=== PATIENT | male | born 2000 | race Caucasian/White ===

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

== ENCOUNTER 2022-05-31 21:08 | Emergency (ER) | payer BC ==
[2022-05-31 21:11] VITALS: BP 127/84; PULSE 73; RESP 18; TEMP 98.5
--- NOTE | 2022-05-31 21:46 | ED ---
Wound/Laceration HPI - General Chief Complaint: Wound/Laceration Stated Complaint: Laceration to right pinkie finger Time Seen by Provider: 05/31/22 21:30 Source: patient, RN notes reviewed Mode of arrival: ambulatory Limitations: no limitations - History of Present Illness Initial Comments: Follow-up with your regular physician as directed. Return to the ER immediately if any symptoms worsen, new symptoms arise, or any other problems develop. - Related Data Home Medications Medication Instructions Recorded Confirmed Loratadine [Claritin] 10 mg PO DAILY PRN 10/06/17 08/22/20 Previous Rx's Medication Instructions Recorded Azithromycin [Zithromax Z-pack (6 250 mg PO DIRECTED #6 tab 08/22/20 tabs)] Cephalexin [Keflex] 500 mg PO Q8H #15 cap 05/31/22 Allergies Allergy/AdvReac Type Severity Reaction Status Date / Time No Known Allergies Allergy Verified 05/31/22 21:11 Review of Systems ROS Statement: Those systems with pertinent positive or pertinent negative responses have been documented in the HPI. ROS Other: All systems not noted in ROS Statement are negative. Past Medical History Past Medical History: Asthma History of Any Multi-Drug Resistant Organisms: None Reported Past Surgical History: No Surgical Hx Reported Past Psychological History: No Psychological Hx Reported Smoking Status: Never smoker Past Alcohol Use History: None Reported Past Drug Use History: None Reported General Exam Limitations: no limitations General appearance: alert, in no apparent distress Head exam: Present: atraumatic, normocephalic, normal inspection Eye exam: Present: normal appearance, EOMI Neck exam: Present: normal inspection Respiratory exam: Present: normal lung sounds bilaterally. Absent: respiratory distress, wheezes, rales, rhonchi, stridor Cardiovascular Exam: Present: regular rate, normal rhythm, normal heart sounds. Absent: systolic murmur, diastolic murmur, rubs, gallop, clicks GI/Abdominal exam: Present: soft. Absent: guarding Extremities exam: Present: full ROM, normal capillary refill, other (Patient has a 2 Center laceration overlying the right fifth MCP joint on the dorsum of the hand. No evidence of foreign body. This does extend straight to the tendon. In fact, there appears to be a partial tendon injury. Remainder of the hand is atraumatic. ). Absent: normal inspection, tenderness Right Hand Wrist exam: Present: full ROM, laceration. Absent: tenderness, swelling, abrasion, ecchymosis, deformity, crepitus, dislocation, erythema, amputation, nail avulsion, subungual hematoma Neuro motor exam: Present: wrist extension intact, thumb opposition intact, thumb IP flexion intact, thumb adduction intact, fingers 2-5 abduction intact Neurosensory exam: Present: radial nerve intact, ulnar nerve intact, median nerve intact Vascular: Present: normal capillary refill. Absent: vascular compromise, Pallo, pulse deficit radial art, pulse deficit ulnar art Back exam: Present: normal inspection Neurological exam: Present: alert, oriented X3, CN II-XII intact Psychiatric exam: Present: normal affect, normal mood Skin exam: Present: warm, dry Course Vital Signs 05/31/22 21:09 Temperature 98.5 F Pulse Rate 73 Respiratory 18 Rate Blood Pressure 127/84 O2 Sat by Pulse 97 Oximetry Procedures - Laceration Laceration #1 Consent Obtained: verbal consent Indication: laceration Site: upper extremity ([id number]) Size (cm): 2 Description: linear Depth: simple, single layer Anesthetic Used: lidocaine 1% Anesthesia Technique: local infiltration, nerve block (Digital block) Amount (mls): 2 Pre-repair: wound explored, irrigated extensively Type of Sutures: nylon Size of Sutures: 5-0 Number of Sutures: 3 Technique: simple, interrupted Patient Tolerated Procedure: well, no complications Additional Comments: Appears to have a very limited extensor tendon injury. Full function. - Orthopedic Splinting/Casting Injury #1 Side: right Upper Extremity Injury Location: finger (Chapo taping fifth and fourth fingers) Medical Decision Making - Medical Decision Making Given the tiny extensor tendon laceration with good function. This is likely less than 10% of the tendon. We will have the patient follow-up with a hand surgeon. We'll cover with antibiotics. Splinting. Patient concurs with this treatment plan. Discussed wound care. Discussed signs and symptoms of infection. Patient was told to return to the ER for any signs or symptoms worsen. Told to return immediately if any other problems arise. All questions answered. Treatment plan discussed. Patient in agreement Every effort has been made to ensure accuracy of this dictation. However, due to the limitations of electronic medical records and dictation devices, errors in charting still occur. Supervising physicians Dr. Kitto Disposition Clinical Impression: Laceration of right hand, Injury of extensor tendon of right hand Narrative: Very limited extensor tendon injury, right hand, right fifth extensor tendon Disposition: HOME SELF-CARE Additional Instructions: Follow-up with your regular physician as directed. Return to the ER immediately if any symptoms worsen, new symptoms arise, or any other problems develop. Wash the wound daily with warm soap and water. Suture removal in 10 days or as directed by the orthopedic physician. Take antibiotics as directed. Call tomorrow morning to schedule follow-up appointment with the orthopedic physician. Prescriptions: Cephalexin [Keflex] 500 mg PO Q8H #15 cap Is patient prescribed a controlled substance at d/c from ED?: No Referrals: Rosa Mcneal DO [Doctor of Osteopathic Medicine] - 06/03/22 Time of Disposition: 22:26
--- NOTE | 2022-05-31 22:22 | XR ---
EXAMINATION TYPE: XR hand limited RT DATE OF EXAM: 05/31/2022 COMPARISON: NONE HISTORY: Laceration TECHNIQUE: 2 views FINDINGS: Metacarpals are intact. I see no fracture nor dislocation. No sizable foreign body. Joint s paces are normal. Finger is intact. IMPRESSION: Negative right hand exam.
[2022-05-31] MEDS ORDERED: BACITRACIN OINT 1 EACH PACKET TOPICAL ONE (22:24)
== END 2022-05-31 22:45 | disposition home or self-care (01) ==
LOC: EC 21:08
DX: S61.216A Laceration without foreign body of right little finger without damage to nail, initial encounter (principal); S66.306A Unspecified injury of extensor muscle, fascia and tendon of right little finger at wrist and hand level, initial encounter; J45.909 Unspecified asthma, uncomplicated; Z79.899 Other long term (current) drug therapy; Y28.0XXA Contact with sharp glass, undetermined intent, initial encounter
CPT/HCPCS: 12001; 99283

== ENCOUNTER 2022-12-16 08:16 | Inpatient (IN) | payer BC ==
--- NOTE | 2022-12-16 08:45 | ED ---
General Adult HPI - General Chief complaint: Abdominal Pain Stated complaint: Lower ABD Pain Time Seen by Provider: 12/16/22 08:30 Source: patient, RN notes reviewed, old records reviewed Mode of arrival: ambulatory Limitations: no limitations - History of Present Illness Initial comments: 22-year-old male presenting for evaluation of right lower quadrant pain, nausea. Symptoms began throughout the night. He developed some mid abdominal and right lower quadrant abdominal pain. No fever. Patient states he is otherwise healthy. He states he had a normal bowel movement this morning. No testicular pain. No hematuria. - Related Data Home Medications Medication Instructions Recorded Confirmed Loratadine [Claritin] 10 mg PO DAILY PRN 10/06/17 08/22/20 Previous Rx's Medication Instructions Recorded Azithromycin [Zithromax Z-pack (6 250 mg PO DIRECTED #6 tab 08/22/20 tabs)] Cephalexin [Keflex] 500 mg PO Q8H #15 cap 05/31/22 Allergies Allergy/AdvReac Type Severity Reaction Status Date / Time No Known Allergies Allergy Verified 12/16/22 08:28 Review of Systems ROS Statement: Those systems with pertinent positive or pertinent negative responses have been documented in the HPI. ROS Other: All systems not noted in ROS Statement are negative. Past Medical History Past Medical History: Asthma Additional Past Medical History / Comment(s): childhood asthma History of Any Multi-Drug Resistant Organisms: None Reported Past Surgical History: No Surgical Hx Reported Additional Past Surgical History / Comment(s): wisdom teeth removal Past Psychological History: No Psychological Hx Reported Smoking Status: Never smoker Past Alcohol Use History: None Reported Past Drug Use History: None Reported General Exam Limitations: no limitations General appearance: alert, in no apparent distress Head exam: Present: atraumatic, normocephalic Eye exam: Present: normal appearance, PERRL ENT exam: Present: normal exam Neck exam: Present: normal inspection Respiratory exam: Present: normal lung sounds bilaterally. Absent: respiratory distress Cardiovascular Exam: Present: regular rate, normal rhythm GI/Abdominal exam: Present: soft, tenderness (Right lower quadrant tenderness with minimal guarding). Absent: distended, rebound, rigid Extremities exam: Present: normal inspection Neurological exam: Present: alert, oriented X3, CN II-XII intact, normal gait. Absent: motor sensory deficit Psychiatric exam: Present: normal affect, normal mood Skin exam: Present: warm, dry, intact. Absent: cyanosis, diaphoretic Course Vital Signs 12/16/22 12/16/22 08:24 10:41 Temperature 98.1 F Pulse Rate 92 55 L Respiratory 18 18 Rate Blood Pressure 143/74 140/76 O2 Sat by Pulse 97 100 Oximetry - Reevaluation(s) Reevaluation #1: 12/16/22 08:45 Patient offered pain medication but declines at the time my initial evaluation. Medical Decision Making - Medical Decision Making Was pt. sent in by a medical professional or institution (, PA, ENGINEERING PROGRAM ANALYST, urgent care, hospital, or fci...) When possible be specific @ -No Did you speak to anyone other than the patient for history (EMS, parent, family, police, friend...)? What history was obtained from this source @ -Patient's father Did you review nursing and triage notes (agree or disagree)? Why? @ -I reviewed and agree with nursing and triage notes Were old charts reviewed (outside hosp., previous admission, EMS record, old EKG, old radiological studies, urgent care reports/EKG's, fci records)? Report findings @ -Reviewed old computed tomography scan showing calcified appendicolith Differential Diagnosis (chest pain, altered mental status, abdominal pain women, abdominal pain men, vaginal bleeding, weakness, fever, dyspnea, syncope, headache, dizziness, GI bleed, back pain, seizure, CVA, palpatations, mental health, musculoskeletal)? @ -Differential Abdominal Pain Men: Appendicitis, cholecystitis, diverticulosis, ischemic bowel, pancreatitis, hepatitis, UTI, gastroenteritis, AAA, incarcerated hernia, bowel obstruction, constipation, inflammatory bowel, hepatitis, peptic ulcer disease, splenic infarction, perforated viscus, testicular torsion, this is not meant to be an all-inclusive list EKG interpreted by me (3pts min.). @ -None X-rays interpreted by me (1pt min.). @ -None done CT interpreted by me (1pt min.). @ -CT reviewed and interpreted by myself, agree with the radiologist findings, concern for acute appendicitis. U/S interpreted by me (1pt. min.). @ -None done What testing was considered but not performed or refused? (CT, X-rays, U/S, labs)? Why? @ -None What meds were considered but not given or refused? Why? @ -Consider pain medication, IV pain meds however patient declined initially Did you discuss the management of the patient with other professionals (professionals i.e. , PA, ENGINEERING PROGRAM ANALYST, lab, RT, psych nurse, social studies department chair, photographic press screwmaker, teacher, armoured corps officer, case technician)? Give summary @ -Discuss case with general surgery on-call, Dr. Wang Was smoking cessation discussed for >3mins.? @ -No Was critical care preformed (if so, how long)? @ -No Were there social determinants of health that impacted care today? How? (Homelessness, low income, unemployed, alcoholism, drug addiction, transportation, low edu. Level, literacy, decrease access to med. care, fdc, rehab)? @ -No Was there de-escalation of care discussed even if they declined (Discuss DNR or withdrawal of care, Hospice)? DNR status @ -No What co-morbidities impacted this encounter? (DM, HTN, Smoking, COPD, CAD, Cancer, CVA, ARF, Chemo, Hep., AIDS, mental health diagnosis, sleep apnea, morbid obesity)? @ -None Was patient admitted / discharged? Hospital course, mention meds given and r oute, prescriptions, significant lab abnormalities, going to OR and other pertinent info. @ -4-year-old male presenting with right lower quadrant pain, concern for appendicitis. Workup was initiated, telemetry testing, and CT imaging. White blood cell count is elevated at 14, history and exam is consistent with appendicitis. CT imaging does show a dilated appendix and appendicolith which is consistent with acute appendicitis. Patient will be admitted on IV antibiotics for surgical management. Undiagnosed new problem with uncertain prognosis? @ -No Drug Therapy requiring intensive monitoring for toxicity (Heparin, Nitro, Insulin, Cardizem)? @ -No Were any procedures done? @ -No Diagnosis/symptom? @ -Acute appendicitis Acute, or Chronic, or Acute on Chronic? @ -Acute Uncomplicated (without systemic symptoms) or Complicated (systemic symptoms)? @ -Complicated Side effects of treatment? @ -No Exacerbation, Progression, or Severe Exacerbation? @ -No Poses a threat to life or bodily function? How? (Chest pain, [place], [place], pneumonia, PE, COPD, DKA, ARF, appy, cholecystitis, CVA, Diverticulitis, Homicidal, Suicidal, threat to staff... and all critical care pts) @ -Appendicitis leading to sepsis, leading to end organ dysfunction and possible . - Lab Data Result diagrams: 12/16/22 08:52 12/16/22 08:52 Lab Results 12/16/22 12/16/22 12/16/22 Range/Units 08:52 08:52 08:52 WBC 14.4 H (4.0-11.0) k/uL RBC 5.48 (4.30-5.90) m/uL Hgb 16.5 (13.0-17.5) gm/dL Hct 46.5 (39.0-53.0) % MCV 84.9 (80.0-100.0) fL MCH 30.1 (25.0-35.0) pg MCHC 35.5 (31.0-37.0) g/dL RDW 12.1 (11.5-15.5) % Plt Count 236 (150-450) k/uL MPV 7.0 Neutrophils % 83 % Lymphocytes % 9 % Monocytes % 6 % Eosinophils % 1 % Basophils % 0 % Neutrophils # 11.9 H (1.3-7.7) k/uL Lymphocytes # 1.3 (1.0-4.8) k/uL Monocytes # 0.9 (0-1.0) k/uL Eosinophils # 0.1 (0-0.7) k/uL Basophils # 0.0 (0-0.2) k/uL PT 11.8 (9.0-12.0) sec INR 1.1 (<1.2) APTT 26.5 (22.0-30.0) sec Sodium 139 (137-145) mmol/L Potassium 4.8 (3.5-5.1) mmol/L Chloride 102 (98-107) mmol/L Carbon Dioxide 28 (22-30) mmol/L Anion Gap 9 mmol/L BUN 16 (9-20) mg/dL Creatinine 0.87 (0.66-1.25) mg/dL Est GFR (CKD-EPI)AfAm >90 (>60 ml/min/1.73 sqM) Est GFR (CKD-EPI)NonAf >90 (>60 ml/min/1.73 sqM) Glucose 97 (74-99) mg/dL Plasma Lactic Acid Jake (0.7-2.0) mmol/L Calcium 9.6 (8.4-10.2) mg/dL Total Bilirubin 1.4 H (0.2-1.3) mg/dL AST 27 (17-59) U/L ALT 23 (4-49) U/L Alkaline Phosphatase 81 (38-126) U/L Total Protein 7.7 (6.3-8.2) g/dL Albumin 4.7 (3.5-5.0) g/dL Lipase 35 (23-300) U/L 12/16/22 Range/Units 08:52 WBC (4.0-11.0) k/uL RBC (4.30-5.90) m/uL Hgb (13.0-17.5) gm/dL Hct (39.0-53.0) % MCV (80.0-100.0) fL MCH (25.0-35.0) pg MCHC (31.0-37.0) g/dL RDW (11.5-15.5) % Plt Count (150-450) k/uL MPV Neutrophils % % Lymphocytes % % Monocytes % % Eosinophils % % Basophils % % Neutrophils # (1.3-7.7) k/uL Lymphocytes # (1.0-4.8) k/uL Monocytes # (0-1.0) k/uL Eosinophils # (0-0.7) k/uL Basophils # (0-0.2) k/uL PT (9.0-12.0) sec INR (<1.2) APTT (22.0-30.0) sec Sodium (137-145) mmol/L Potassium (3.5-5.1) mmol/L Chloride (98-107) mmol/L Carbon Dioxide (22-30) mmol/L Anion Gap mmol/L BUN (9-20) mg/dL Creatinine (0.66-1.25) mg/dL Est GFR (CKD-EPI)AfAm (>60 ml/min/1.73 sqM) Est GFR (CKD-EPI)NonAf (>60 ml/min/1.73 sqM) Glucose (74-99) mg/dL Plasma Lactic Acid Jake 1.5 (0.7-2.0) mmol/L Calcium (8.4-10.2) mg/dL Total Bilirubin (0.2-1.3) mg/dL AST (17-59) U/L ALT (4-49) U/L Alkaline Phosphatase (38-126) U/L Total Protein (6.3-8.2) g/dL Albumin (3.5-5.0) g/dL Lipase (23-300) U/L Disposition Clinical Impression: Acute appendicitis Disposition: ADMITTED IP TO THIS HOSP Condition: Stable Is patient prescribed a controlled substance at d/c from ED?: No Referrals: None,Stated [Primary Care Provider] - 1-2 days Time of Disposition: 10:30
[2022-12-16 09:13] LABS: ALT 23 U/L (4-49); AST 27 U/L (17-59); African American GFR (CKD) >90 (>60 ml/min/1.73 sqM); Albumin 4.7 g/dL (3.5-5.0); Alkaline Phosphatase 81 U/L (38-126); Anion Gap 9 mmol/L; Blood Urea Nitrogen 16 mg/dL (9-20); Calcium 9.6 mg/dL (8.4-10.2); Carbon Dioxide 28 mmol/L (22-30); Chloride 102 mmol/L (98-107); Glucose 97 mg/dL (74-99); INR 1.1 (<1.2); Lipase 35 U/L (23-300); Non-African American GFR(CKD) >90 (>60 ml/min/1.73 sqM); Partial Thromboplastin Time 26.5 sec (22.0-30.0); Potassium 4.8 mmol/L (3.5-5.1); Prothrombin Time 11.8 sec (9.0-12.0); Sodium 139 mmol/L (137-145); Total Bilirubin 1.4 mg/dL (0.2-1.3); Total Protein 7.7 g/dL (6.3-8.2)
[2022-12-16 09:16] LABS: Basophils % (A) 0 %; Eosinophils # (A) 0.1 k/uL (0-0.7); Eosinophils % (A) 1 %; HCT 46.5 % (39.0-53.0); HGB 16.5 gm/dL (13.0-17.5); Lymphocytes # (A) 1.3 k/uL (1.0-4.8); Lymphocytes % (A) 9 %; MCH 30.1 pg (25.0-35.0); MCHC 35.5 g/dL (31.0-37.0); MCV 84.9 fL (80.0-100.0); Monocytes # (A) 0.9 k/uL (0-1.0); Monocytes % (A) 6 %; Neutrophils # (A) 11.9 k/uL (1.3-7.7); Neutrophils % (A) 83 %; Platelet Count 236 k/uL (150-450); RBC 5.48 m/uL (4.30-5.90); RDW 12.1 % (11.5-15.5); WBC 14.4 k/uL (4.0-11.0)
--- NOTE | 2022-12-16 10:27 | CT ---
EXAMINATION TYPE: CT abdomen pelvis w con DATE OF EXAM: 12/16/2022 COMPARISON: CT abdomen and pelvis August 22, 2020 HISTORY: Abdominal pain/RLQ CT DLP: 755.1 mGycm, Automated Exposure Control for Dose Reduction was Utilized. CONTRAST: CT scan of the abdomen and pelvis is performed without oral and with IV Contrast, patient injected wi th 100 ml mL of Isovue 300. FINDINGS: LUNG BASES: No significant abnormality is appreciated. LIVER/GB: No significant abnormality is appreciated. PANCREAS: No significant abnormality is seen. SPLEEN: No significant abnormality is seen. ADRENALS: No significant abnormality is seen. KIDNEYS: No significant abnormality is seen. BOWEL: Suboptimal evaluation without enteric contrast. No suspicious small or large bowel dilatation. Persistent calcification in the right lower quadrant axial image 59 and was present on prior CT appe ars to be regions of near the level of the cecum. Terminal ileum likely within normal limits coronal image 33. Calcification is felt not within the cecum but below it. It may be in the mid aspect of the appendix with dilated appendix inferior to this measuring up to 13 mm in diameter versus fluid-fille d distal small bowel loop with nondilated proximal portion near the cecum. There is minimal haziness of the adjacent fat. No free air. No well-formed fluid collection or abscess. PROSTATE/SEMINAL VESICLES: No gross abnormality seen. LYMPH NODES: Persistent prominent lymph nodes in the right lower quadrant mesentery. OSSEOUS STRUCTURES: No significant abnormality is seen. OTHER: Small amount of free fluid in the pelvis axial image 67 on current study. IMPRESSION: CT findings on current study are suspicious for mid to distal appendicitis due to obstruc tive appendicolith on the current study. Calcification possible appendicolith was visualized on prior exam however. Difficult to discern appendix from adjacent small bowel loops in patient with little i ntra-abdominal fat and lack of enteric contrast. Small amount of free fluid in the pelvis is noted an d new from prior study. Surgical evaluation is advised.
[2022-12-16] MEDS ORDERED: PIPERACILLIN-TAZOBACTAM 3.375 GM in SODIUM CHLORIDE 0.9% 100 ML IVPB STA (10:38)
[2022-12-16] MEDS ORDERED: NALOXONE 0.4 MG/ML 1 ML VIAL IV PRN (10:44)
[2022-12-16] MEDS ORDERED: ACETAMINOPHEN TAB 325 MG TAB PO PRN (10:44)
[2022-12-16] MEDS: SODIUM CHLORIDE 0.9% 1,000 ML IV SCH ×2 (12:02→21:35)
[2022-12-16] MEDS: HYDROmorphone 0.5 MG/0.5 ML SYRINGE IVP PRN ×4 (12:06→21:34)
[2022-12-16] MEDS: PIPERACILLIN-TAZOBACTAM 3.375 GM in SODIUM CHLORIDE 0.9% 100 ML IVPB SCH ×2 (12:51→21:09)
--- NOTE | 2022-12-16 22:48 | P.GSHP ---
History of Present Illness H&P Date: 12/16/22 CHIEF COMPLAINT: Right lower quadrant abdominal pain with appendicitis less than 1 day. HISTORY OF PRESENT ILLNESS: The patient is a previously healthy 22-year-old male who presents with less than 1 day history of periumbilical with right lower quadrant abdominal pain that is crampy dull ache in nature. No reports of prior abdominal pain. He states the intensity of the pain is moderate but has improved today. His presented with CT abdomen and pelvis consistent with dilated appendix suspicious for appendicitis hence general surgery admission. He reports in appetite. No nausea and vo miting. His father's bedside. PAST MEDICAL HISTORY: See list and reviewed PAST SURGICAL HISTORY: See list and reviewed CURRENT MEDICATIONS: See list and reviewed ALLERGIES: See list and reviewed SOCIAL HISTORY: See list and reviewed FAMILY HISTORY: See list and reviewed REVIEW OF ORGAN SYSTEMS: CONSTITUTIONAL: Present fever, no chills. Denies recent weight loss. HEENT: Denies any trouble with vision, hearing or nosebleeds. No difficulty swallowing. LYMPHATIC: The patient denies any lumps and bumps around the neck. ENDOCRINE: Denies any thyroid disorders. Denies any blood sugar glucose intolerance. RESPIRATORY: Denies shortness of breath including chronic cough. CARDIOVASCULAR: Denies history of chest pain with exertion. GASTROINTESTINAL: Denies regurgitation of bile at night as well as intermittent nausea. No blood in stools. GENITOURINARY: Denies any blood in urine or increased urinary frequency. MUSCULOSKELETAL: Denies current joint arthritis. NEUROLOGIC: Denies any numbness or tingling along the distal extremities. No seizure disorders or headaches. PSYCHIATRIC: Denies any depression or suicidal ideation. HEMATOLOGIC: Denies any abnormal bleeding or bruising. PHYSICAL EXAMINATION: VITALS: Reviewed. GENERAL: Well-developed and in no acute distress. Pleasant. HEENT: No sclera icterus. Extraocular movements grossly intact. Moist buccal mucosa. Head is atraumatic, normocephalic. Hears conversational speech. No nasal drainage. NECK: Supple without lymphadenopathy. No JV distention. CHEST: Non-labored respirations and equal bilateral excursions. CARDIOVASCULAR: Regular rate and rhythm. Palpable 2+ radial pulses. ABDOMEN: Soft, tender at the right lower quadrant without guarding. MUSCULOSKELETAL: No clubbing, cyanosis or edema. NEUROLOGIC: No focal or lateralizing signs. PSYCH: Appropriate affect. Alert and oriented to person, place and time. SKIN: Well perfused. Good skin turgor. LABS: Reviewed. White blood cell count elevated over 14,000. STUDIES: CT of the abdomen and pelvis independently reviewed with appendicolith right lower quadrant. This is my independent interpretation. ASSESSMENT: 1. Right lower quadrant pain. 2. Appendicolith with appendicitis 3. Leukocytosis. PLAN: 1. I have discussed benefits and risks of robotic appendectomy. 2. Bilateral SCDs. 3. Antibiotics intravenous to address leukocytosis Thank you very much for allowing me to participate in the care of your estuardo ent. Past Medical History Past Medical History: Asthma Additional Past Medical History / Comment(s): childhood asthma History of Any Multi-Drug Resistant Organisms: None Reported Past Surgical History: No Surgical Hx Reported Additional Past Surgical History / Comment(s): wisdom teeth removal Past Psychological History: No Psychological Hx Reported Smoking Status: Never smoker Past Alcohol Use History: None Reported Past Drug Use History: None Reported Medications and Allergies Home Medications Medication Instructions Recorded Confirmed Type No Known Home Medications 12/16/22 12/16/22 History Allergies Allergy/AdvReac Type Severity Reaction Status Date / Time No Known Allergies Allergy Verified 12/16/22 11:06 Surgical - Exam Vital Signs Temp Pulse Resp BP Pulse Ox 98.1 F 92 18 143/74 97 12/16/22 08:24 12/16/22 08:24 12/16/22 08:24 12/16/22 08:24 12/16/22 08:24 Results - Labs 12/16/22 08:52 12/16/22 08:52 Abnormal Lab Results - Last 24 Hours (Table) 12/16/22 12/16/22 Range/Units 08:52 08:52 WBC 14.4 H (4.0-11.0) k/uL Neutrophils # 11.9 H (1.3-7.7) k/uL Total Bilirubin 1.4 H (0.2-1.3) mg/dL Diabetes panel 12/16/22 Range/Units 08:52 Sodium 139 (137-145) mmol/L Potassium 4.8 (3.5-5.1) mmol/L Chloride 102 (98-107) mmol/L Carbon Dioxide 28 (22-30) mmol/L BUN 16 (9-20) mg/dL Creatinine 0.87 (0.66-1.25) mg/dL Glucose 97 (74-99) mg/dL Calcium 9.6 (8.4-10.2) mg/dL AST 27 (17-59) U/L ALT 23 (4-49) U/L Alkaline Phosphatase 81 (38-126) U/L Total Protein 7.7 (6.3-8.2) g/dL Albumin 4.7 (3.5-5.0) g/dL Calcium panel 12/16/22 Range/Units 08:52 Calcium 9.6 (8.4-10.2) mg/dL Albumin 4.7 (3.5-5.0) g/dL Pituitary panel 12/16/22 Range/Units 08:52 Sodium 139 (137-145) mmol/L Potassium 4.8 (3.5-5.1) mmol/L Chloride 102 (98-107) mmol/L Carbon Dioxide 28 (22-30) mmol/L BUN 16 (9-20) mg/dL Creatinine 0.87 (0.66-1.25) mg/dL Glucose 97 (74-99) mg/dL Calcium 9.6 (8.4-10.2) mg/dL Adrenal panel 12/16/22 Range/Units 08:52 Sodium 139 (137-145) mmol/L Potassium 4.8 (3.5-5.1) mmol/L Chloride 102 (98-107) mmol/L Carbon Dioxide 28 (22-30) mmol/L BUN 16 (9-20) mg/dL Creatinine 0.87 (0.66-1.25) mg/dL Glucose 97 (74-99) mg/dL Calcium 9.6 (8.4-10.2) mg/dL Total Bilirubin 1.4 H (0.2-1.3) mg/dL AST 27 (17-59) U/L ALT 23 (4-49) U/L Alkaline Phosphatase 81 (38-126) U/L Total Protein 7.7 (6.3-8.2) g/dL Albumin 4.7 (3.5-5.0) g/dL
[2022-12-17] MEDS: ACETAMINOPHEN IV (For NPO) 1,000 MG in EMPTY BAG 1 BAG IVPB SCH ×4 (00:35→18:45)
[2022-12-17] MEDS: HYDROmorphone 0.5 MG/0.5 ML SYRINGE IVP PRN ×2 (00:37→03:54)
[2022-12-17] MEDS: HYDROmorphone 1 MG/ML 1 ML SYRINGE IVP PRN ×3 (04:53→12:27)
[2022-12-17] MEDS: PIPERACILLIN-TAZOBACTAM 3.375 GM in SODIUM CHLORIDE 0.9% 100 ML IVPB SCH ×3 (05:23→21:01)
[2022-12-17] MEDS: SODIUM CHLORIDE 0.9% 1,000 ML IV SCH ×3 (05:31→17:31)
[2022-12-17] MEDS: ONDANSETRON 4 MG/2 ML VIAL IVP PRN ×2 (07:31→13:48)
[2022-12-17 10:26] LABS: HCT 46.2 % (39.6-50.0); HGB 15.3 g/dL (13.0-17.0); MCHC 33.1 g/dL (32.0-37.0); MCV 87.7 fL (80.0-97.0); Mean Platelet Volume 9.9 fL (9.5-12.2); NRBC Per 100 WBC 0 /100 WBCS (0.0-0.0); Platelet Count 237 X 10*3/uL (140-440); RBC 5.27 X 10*6/uL (4.40-5.60); RDW 11.9 % (11.5-14.5); WBC 20.75 X 10*3/uL (4.50-10.00)
[2022-12-17 11:11] LABS: Basophils # (A) 0.04 X 10*3/uL (0.00-0.10); Basophils % (A) 0.2 %; Eosinophils # (A) 0.03 X 10*3/uL (0.04-0.35); Eosinophils % (A) 0.1 %; Immature Grans, Automated 0.6 %; Lymphocytes # (A) 2.14 X 10*3/uL (0.90-5.00); Lymphocytes % (A) 10.3 %; Monocytes # (A) 2.13 X 10*3/uL (0.20-1.00); Monocytes % (A) 10.3 %; Neutrophils # (A) 16.28 X 10*3/uL (1.80-7.70); Neutrophils % (A) 78.5 %
[2022-12-17] MEDS ORDERED: IV FLUID CONTINUATION 1,000 ML IV ONE (13:45)
[2022-12-17] MEDS ORDERED: HEPARIN SODIUM,PORCINE/PF 5,000 UNIT/0.5 ML SYRINGE SQ ONE (14:06)
[2022-12-17] MEDS ORDERED: HEPARIN SODIUM,PORCINE 5,000 UNIT/ML 1 ML VIAL SQ ONE (14:09)
[2022-12-17] MEDS ORDERED: KETAMINE 10 MG/ML 20 ML VIAL ONE (14:37)
[2022-12-17] MEDS ORDERED: fentaNYL (PF) 50 MCG/ML 2 ML AMP ONE (14:37)
[2022-12-17] MEDS ORDERED: SUCCINYLCHOLINE CHLORIDE 200 MG/10 ML VIAL IV ONE (14:37)
[2022-12-17] MEDS ORDERED: HYDROmorphone (PF) 1 MG/ML ONE (14:37)
[2022-12-17] MEDS ORDERED: PROPOFOL 10 MG/ML 20 ML VIAL IV ONE (14:37)
[2022-12-17] MEDS ORDERED: LIDOCAINE 2% INJ 20 MG/ML (2 ML VIAL) ONE (14:37)
[2022-12-17] MEDS ORDERED: ROCURONIUM 10 MG/ML (5 ML VIAL) IV ONE (14:37)
[2022-12-17] MEDS ORDERED: MIDAZOLAM 2 MG/2 ML VIAL ONE (14:37)
[2022-12-17] MEDS ORDERED: GLYCOPYRROLATE 0.2 MG/ML 2 ML VIAL ONE (14:37)
[2022-12-17] MEDS ORDERED: KETOROLAC 30 MG/ML 1 ML VIAL ONE (14:37)
[2022-12-17] MEDS ORDERED: NEOSTIGMINE 1 MG/ML 10 ML VIAL ONE (14:37)
[2022-12-17] MEDS ORDERED: BUPIVACAIN-EPI 0.25%-1:200,000 30 ML VIAL SQ ONE ×2 (14:59→15:08)
[2022-12-17] MEDS ORDERED: LACTATED RINGERS 1,000 ML IV ONE ×2 (15:20→15:59)
--- NOTE | 2022-12-17 16:57 | P.OP ---
Date of Procedure: 12/17/22 Description of Procedure: SURGEON: CARLOZ MADDOX MD Preoperative Diagnosis: 1. Acute appendicitis 2. Sepsis 3. Ascites Postoperative Diagnosis: 1. Gangrenous ruptured appendicitis with appendiceal abscess with peritoneal adhesions 2. Sepsis 3. Ascites, turbid 4. Right inguinal hernia Procedure(s) Performed: 1. Robotic-assisted daVinci Xi laparoscopic lysis of adhesions, over 30 minutes 2. Robotic-assisted daVinci Xi laparoscopic appendectomy with drainage of periappendiceal abscess 3. Placement of DONNY drain #19 right lower quadrant/pelvis 4. Peritoneal lavage 3000 mL normal saline Anesthesia: GETA, local Estimated Blood Loss (ml): 5 Pathology: other (appendix, aerobic and anerobic culture of peritoneal fluid from peritonitis) Condition: stable Disposition: floor Operative Findings: 1. Localized abscess over 50-mL drained right lower quadrant 2. Gangrenous ruptured purulent appendicitis including mid-body appendix 3. Abdomen irrigated with 3000-mL normal saline 4. DONNY drain placed at pelvis pocket drained 5. Staple line hemostatic 6. Right indirect inguinal hernia, 5-mm INDICATIONS: The patient is a 22-year-old male who presents with acute appendicitis including fevers consistent with sepsis. Surgical intervention was described in detail. Patient requested robotic-assisted technique. Benefits and risks, including infection, open surgery, and possibility for additional surgery was discussed at length. Informed consent was obtained. All questions of the patient and family were answered. DESCRIPTION: The patient was transferred to the operating room and placed in supine position. The patient had previously voided. The abdomen was then prepped and draped in standard sterile fashion as Ioban was placed along the abdomen to minimize any contamination of skin floor. After a timeout protocol was performed, attention was then brought to the left upper quadrant whereby a 0 degree 5 mm laparoscopic trocar entry was performed. The abdominal cavity was entered and insufflated to 15 mmHg pressure, which was tolerated well. Diagnostic laparoscopy demonstrated no injury to bowel, viscera or mesentery. Adhesions were confirmed of the right lower quadrant of omentum, small bowel to the abdominal wall. Localized abscess was found. Next a robotic 12-mm trocar was placed along the left upper quadrant after exchanging the 5 mm trocar. A 8 mm port was placed along the left lower quadrant and another 8-mm port left lateral abdominal wall. Ports were placed 10 cm apart from each other including 15-20 cm away from the target anatomy of the right pelvis. The patient was then placed in Trendelenburg position, at least 14 and right side up at least 7. The robotic da Jeremy XI system was primed and docked from the left side of the patient. Using atraumatic graspers and vessel sealer, the robotic system was docked and primed as described. Instruments were interchanged by the legal document assistant including graspers, robotic stapler and vessel sealer. Next, attention was brought to identify the cecum. A systematic view within the abdominal cavity was started with the small bowel which was remarkable for diffuse fibrinous exudate throughout the pelvis. The base of the cecum was with inflammation and ischemia. The appendix was ruptured and mid body of appendix with moderate dissection performed. The abscess of 20- mL was aspirated from the abdomen. Extensive lysis of adhesions over 30 minutes was used to dissect the appendix from surrounding tissues including along the base of the cecum. Turbid peritoneal fluid along the pelvis with abscess was identified with 50 mL, drained. Additionally, a right indirect inguinal hernia, 5 mm was identified. A 45 mm blue robotic staple load was fired along the base of the appendix. The staple line was hemostatic and viable. Hemostasis was checked prior to undocking the robot. The abdomen was irrigated with 3000 mL normal saline to the aspirant was clear. Cultures were obtained of the peritoneal fluid. The robot was undocked. I re-scrubbed into the case. A round #19 drain was placed via the left lower quadrant port and positioned at the pelvis. Two drain stitch 2-0 nylon were placed with the bulb attached separately. The specimen was removed from the abdominal cavity with an Endo Catch bag through the 12 mm trocar at the left upper quadrant. All instruments and pneumoperitoneum were evacuated from the abdominal cavity. Local anesthetic was infiltrated to all wounds for postop analgesia. All incisions were also cleansed with diluted hydrogen peroxide. An Optifoam surgical dressing was placed over all port sites including drain site as she has elevated risk for infection. The patient had tolerated the procedure well. The patient was extubated successfully. The patient was transferred to the postanesthesia care unit in stable condition. Intraoperative findings were discussed with the patient's father in person and mother over the telephone.
[2022-12-17] MEDS: PANTOPRAZOLE 40 MG/10 ML VIAL IVP SCH (17:34)
[2022-12-17] MEDS: HEPARIN SODIUM,PORCINE/PF 5,000 UNIT/0.5 ML SYRINGE SQ SCH (21:25)
[2022-12-17] MEDS: KETOROLAC 15 MG/ML 1 ML VIAL IVP SCH ×2 (21:25→23:10)
[2022-12-18] MEDS ORDERED: ACETAMINOPHEN IV (For NPO) 1,000 MG in EMPTY BAG 1 BAG IVPB ONE
[2022-12-18] MEDS: HYDROmorphone 0.5 MG/0.5 ML SYRINGE IVP PRN (01:14)
[2022-12-18] MEDS: ONDANSETRON 4 MG/2 ML VIAL IVP PRN (01:14)
--- NOTE | 2022-12-18 01:31 | P.CONS ---
History of Present Illness - Reason for Consult Consult date: 12/17/22 Medical management - Chief Complaint Status post appendectomy - History of Present Illness Patient is a 22-year-old male with a known history of childhood asthma currently not on any medications presents to ER with complaints of right lower quadrant abdominal pain started on Tuesday night night and came to ER on morning, 12/16/2022.. Patient was complaining of mid abdominal and also right lower quadrant abdominal pain. Crampy and dull aching pain. Patient was nauseous and no episodes of vomiting. He came to ER due to worsening abdominal pain. CT of the abdomen pelvis showed CT findings on current study are suspicious for mid to distal appendicitis due to obstructive appendicolith on the current study. Calcification possible appendicolith was visualized on prior exam however. Laboratory data showed WBC 14.4 hemoglobin 16.5 and platelets 236 and lymphocytes 11.9 INR 1.1 and sodium 139 potassium 4.8 chloride 102 bicarb is 28 BUN 16 creatinine 0.87 and total bilirubin of 1.4 liver enzymes are not elevated lipase level is 35. Patient was taken to the OR and is currently status post robotic assisted laparoscopic cholecystectomy and found to have ruptured appendicitis with periappendicular abscess drainage.. Currently patient is in the postop recovery area. Review of Systems ROS unobtainable: due to mental status Past Medical History Past Medical History: Asthma Additional Past Medical History / Comment(s): childhood asthma History of Any Multi-Drug Resistant Organisms: None Reported Past Surgical History: No Surgical Hx Reported Additional Past Surgical History / Comment(s): wisdom teeth removal Past Psychological History: No Psychological Hx Reported Smoking Status: Never smoker Past Alcohol Use History: None Reported Past Drug Use History: None Reported Medications and Allergies Home Medications Medication Instructions Recorded Confirmed Type No Known Home Medications 12/16/22 12/16/22 History Allergies Allergy/AdvReac Type Severity Reaction Status Date / Time No Known Allergies Allergy Verified 12/16/22 11:06 Physical Exam Vitals: Vital Signs Temp Pulse Pulse Resp BP BP Pulse Ox 12/17/22 16:34 87 15 121/58 98 12/17/22 16:19 98.8 F 93 12 122/58 97 12/17/22 13:40 100 F H 105 H 16 124/58 94 L 12/17/22 07:00 99.1 F 98 18 97/57 97 12/17/22 04:57 100.2 F H 82 16 110/62 97 12/17/22 00:45 100.1 F H 76 16 110/64 99 12/16/22 20:00 16 12/16/22 19:11 98.7 F 66 16 116/61 98 Intake and Output 12/17/22 12/17/22 12/17/22 06:59 14:59 22:59 Intake Total 0 1740 1100 Output Total 5 Balance 0 1740 1095 Intake: IV 500 1100 Intake, IV Titration 1240 Amount ACETAMINOPHEN IV (For NPO 100 ) 1,000 mg In Empty Bag 1 bag @ 400 mls/hr IVPB Q6HR [facility] Rx#:[id number] Piperacillin-Tazobactam 3 100 .375 gm In Sodium Chloride 0.9% 100 ml @ 25 mls/hr IVPB Q8H [facility] Rx#: [id number] Sodium Chloride 0.9% 1, 1040 000 ml @ 130 mls/hr IV . Q7H42M [facility] Rx#:[id number] Oral 0 Output: Estimated Blood Loss 5 Other: # Voids 2 Weight 77.111 kg PHYSICAL EXAMINATION: Patient is lying in the bed. Currently 8 postop day 2 recovery area. Drowsy. HEENT: Normocephalic. Neck is supple. Pupils reactive. Nostrils clear. Oral cavity is moist. Neck reveals no JVD, carotid bruits, or thyromegaly. CHEST EXAMINATION: Trachea is central. Symmetrical expansion. Lung loja clear to auscultation and percussion. CARDIAC: Normal S1, S2 with no gallops. No murmurs ABDOMEN: Soft. Bowel sounds present. Nontender. No organomegaly. No abdominal bruits. Extremities: reveal no edema. No clubbing or cyanosis Neurologically. No gross focal deficits noted Skin: No rash or skin lesions. Psychiatric: Could not be assessed., Musculoskeletal: No joint swelling or deformity. Results CBC & Chem 7: 12/17/22 04:34 12/16/22 08:52 Labs: Abnormal Lab Results - Last 24 Hours (Table) 12/17/22 Range/Units 04:34 WBC 20.75 H (4.50-10.00) X 10*3/uL Immature Gran # 0.13 H (0.00-0.04) X 10*3/uL Neutrophils # 16.28 H (1.80-7.70) X 10*3/uL Monocytes # 2.13 H (0.20-1.00) X 10*3/uL Eosinophils # 0.03 L (0.04-0.35) X 10*3/uL Assessment and Plan Assessment: Acute gangrenous ruptured appendicitis with appendiceal abscess and peritoneal adhesions. Laparoscopic appendectomy and drainage of periappendicular abscess. Postoperative day 0 Leukocytosis Childhood asthma. Stable at this time. DVT prophylaxis with heparin subcu GI prophylaxis on Protonix IV Plan: Patient will be continued IV hydration. Continue with antibiotics in the form of Zosyn. Continue with normal saline and monitor CBC and BMP. Currently on Dilaudid and Toradol for pain management. We will continue to follow and further recommendations based on the clinical course. Discussed with his father in detail regarding medical condition. Thank you for your consult. Time with Patient: Greater than 30
[2022-12-18] MEDS: SODIUM CHLORIDE 0.9% 1,000 ML IV SCH ×4 (01:50→17:49)
[2022-12-18] MEDS: PIPERACILLIN-TAZOBACTAM 3.375 GM in SODIUM CHLORIDE 0.9% 100 ML IVPB SCH ×3 (04:09→20:34)
[2022-12-18] MEDS: KETOROLAC 15 MG/ML 1 ML VIAL IVP SCH ×4 (05:28→23:56)
[2022-12-18] MEDS: HEPARIN SODIUM,PORCINE/PF 5,000 UNIT/0.5 ML SYRINGE SQ SCH ×2 (09:24→20:34)
[2022-12-18] MEDS: PANTOPRAZOLE 40 MG/10 ML VIAL IVP SCH (09:24)
--- NOTE | 2022-12-18 10:58 | P.PN ---
Progress Note - Text Progress Note Date: 12/18/22 Notified care team via telephone. Discussion with nurse performed. Patient is doing well. Incentive spirometer ordered. Reports pain is controlled. Tolerating diet. Simethicone gas drops ordered. Continue regular diet. Infectious disease consulted for perforated appendicitis, complex. Medical consultation for medical management. Continue hospitalization for complex perforated appendicitis. I personally discussed care with the patient.
[2022-12-18] MEDS: HYDROmorphone 1 MG/ML 1 ML SYRINGE IVP PRN ×3 (11:26→20:42)
[2022-12-18 11:59] LABS: Basophils # (A) 0.04 X 10*3/uL (0.00-0.10); Basophils % (A) 0.2 %; Eosinophils # (A) 0.03 X 10*3/uL (0.04-0.35); Eosinophils % (A) 0.2 %; HCT 38.4 % (39.6-50.0); Immature Grans, Automated 1.2 %; Lymphocytes # (A) 1.01 X 10*3/uL (0.90-5.00); MCH 29.2 pg (27.0-32.0); MCHC 33.9 g/dL (32.0-37.0); MCV 86.3 fL (80.0-97.0); Monocytes # (A) 1.39 X 10*3/uL (0.20-1.00); Monocytes % (A) 8.2 %; NRBC Per 100 WBC 0 /100 WBCS (0.0-0.0); Neutrophils # (A) 14.22 X 10*3/uL (1.80-7.70); Neutrophils % (A) 84.2 %; Platelet Count 190 X 10*3/uL (140-440); RBC 4.45 X 10*6/uL (4.40-5.60); WBC 16.89 X 10*3/uL (4.50-10.00)
[2022-12-18 12:05] LABS: African American GFR (CKD) 111.4 (60.0-200.0); Albumin 3.3 g/dL (3.8-4.9); Albumin/Globulin Ratio 1.58 (1.60-3.17); Anion Gap 8.3 mmol/L (10.00-18.00); BUN/Creat Ratio 14.09 Ratio (12.00-20.00); Blood Urea Nitrogen 15.5 mg/dL (9.0-27.0); Calcium 8.5 mg/dL (8.7-10.3); Carbon Dioxide 24.7 mmol/L (20.0-27.5); Globulin 2.1 g/dL (1.6-3.3); Non-African American GFR(CKD) 96.1 (60.0-200.0); Potassium 4.3 mmol/L (3.5-5.5); Total Bilirubin 1.9 mg/dL (0.30-1.20); Total Protein 5.3 g/dL (6.2-8.2)
[2022-12-18] MEDS: SIMETHICONE 40 MG/0.6 ML DROPS 2,000 MG/30 ML BOTTLE PO SCH ×3 (13:22→20:42)
--- NOTE | 2022-12-18 23:04 | P.PN ---
Subjective Progress Note Date: 12/18/22 Patient is a 22-year-old male with a known history of childhood asthma currently not on any medications presents to ER with complaints of right lower quadrant abdominal pain started on Tuesday night night and came to ER on morning, 12/16/2022.. Patient was complaining of mid abdominal and also right lower quadrant abdominal pain. Crampy and dull aching pain. Patient was nauseous and no episodes of vomiting. He came to ER due to worsening abdominal pain. CT of the abdomen pelvis showed CT findings on current study are suspicious for mid to distal appendicitis due to obstructive appendicolith on the current study. Calcification possible appendicolith was visualized on prior exam however. Laboratory data showed WBC 14.4 hemoglobin 16.5 and platelets 236 and lymphocytes 11.9 INR 1.1 and sodium 139 potassium 4.8 chloride 102 bicarb is 28 BUN 16 creatinine 0.87 and total bilirubin of 1.4 liver enzymes are not elevated lipase level is 35. Patient was taken to the OR and is currently status post robotic assisted laparoscopic cholecystectomy and found to have ruptured appendicitis with periappendicular abscess drainage.. Currently patient is in the postop recovery area. 12/18/2022 Patient is resting in bed. Awake alert and oriented x3. No complaints of chest pain or shortness of breath. Abdominal pain is better. Patient is able to pass flatus. Tolerating oral diet. Continued on IV hydration and antibiotics with Zosyn. Patient has been afebrile. No nausea or vomiting or diarrhea. No cough or sputum production. Laboratory showed WBC count trending down to 16.8 hemoglobin 13.0 and platelets 190 sodium 133 potassium 4.3 chloride 100 bicarb is 24.7 BUN 15.5 and a creat inine 1.1. Total bilirubin level is slightly up to 1.9 and calcium 8.5. Current medications reviewed. Objective - Vital Signs Vital signs: Vital Signs Temp 99.7 F H 12/18/22 14:24 Pulse 97 12/18/22 14:24 Resp 16 12/18/22 14:24 BP 96/50 12/18/22 14:24 Pulse Ox 96 12/18/22 14:24 FiO2 Intake & Output 12/17/22 12/18/22 12/18/22 18:59 06:59 18:59 Intake Total 2940 450 Output Total 5 110 Balance 2935 340 Weight 77.111 kg Intake: IV 1700 Intake, IV Titration 1240 200 Amount ACETAMINOPHEN IV (For NPO 100 ) 1,000 mg In Empty Bag 1 bag @ 400 mls/hr IVPB [facility] Rx#:[id number] ACETAMINOPHEN IV (For NPO 100 ) 1,000 mg In Empty Bag 1 bag @ 400 mls/hr IVPB Q6HR [facility] Rx#:[id number] Piperacillin-Tazobactam 3 100 100 .375 gm In Sodium Chloride 0.9% 100 ml @ 25 mls/hr IVPB Q8H [facility] Rx#: [id number] Sodium Chloride 0.9% 1, 1040 000 ml @ 130 mls/hr IV . Q7H42M [facility] Rx#:[id number] Oral 250 Output: Drainage 110 Left Lower Abdomen 110 Estimated Blood Loss 5 Other: Voiding Method Toilet # Voids 2 3 - Exam PHYSICAL EXAMINATION: Patient is lying in the bed comfortably, no acute distress, awake alert and oriented.. HEENT: Normocephalic. Neck is supple. Pupils reactive. Nostrils clear. Oral cavity is moist. Neck reveals no JVD, carotid bruits, or thyromegaly. CHEST EXAMINATION: Trachea is central. Symmetrical expansion. Lung loja clear to auscultation and percussion. CARDIAC: Normal S1, S2 with no gallops. No murmurs ABDOMEN: Soft. Bowel sounds present. Mild tenderness. No guarding or rigidity. Incision sites are intact.. No organomegaly. No abdominal bruits. Extremities: reveal no edema. No clubbing or cyanosis Neurologically awake, alert, oriented x3 with well-coordinated movements. No focal deficits noted Skin: No rash or skin lesions. Psychiatric: Coperative. Nonsuicidal, Musculoskeletal: No joint swelling or deformity. Normal range of motion. - Labs CBC & Chem 7: 12/18/22 06:55 12/18/22 06:55 Labs: Abnormal Lab Results - Last 24 Hours (Table) 12/18/22 12/18/22 Range/Units 06:55 06:55 WBC 16.89 H (4.50-10.00) X 10*3/uL Hct 38.4 L (39.6-50.0) % Immature Gran # 0.20 H (0.00-0.04) X 10*3/uL Neutrophils # 14.22 H (1.80-7.70) X 10*3/uL Monocytes # 1.39 H (0.20-1.00) X 10*3/uL Eosinophils # 0.03 L (0.04-0.35) X 10*3/uL Sodium 133 L (135-145) mmol/L Anion Gap 8.30 L (10.00-18.00) mmol/L Calcium 8.5 L (8.7-10.3) mg/dL Total Bilirubin 1.90 H (0.30-1.20) mg/dL Total Protein 5.3 L (6.2-8.2) g/dL Albumin 3.3 L (3.8-4.9) g/dL Albumin/Globulin Ratio 1.58 L (1.60-3.17) g/dL Microbiology - Last 24 Hours (Table) 12/17/22 16:04 Gram Stain - Preliminary Appendix Wound Culture - Preliminary 12/17/22 16:04 Anaerobic Culture - Preliminary Appendix Assessment and Plan Assessment: Acute gangrenous ruptured appendicitis with appendiceal abscess and peritoneal adhesions. Laparoscopic appendectomy and drainage of periappendicular abscess. Postoperative day 1 Leukocytosis Childhood asthma. Stable at this time. DVT prophylaxis with heparin subcu GI prophylaxis on Protonix IV Plan: Patient will be continued IV hydration. Continue with antibiotics in the form of Zosyn. Follow-up surgical abscess fluid culture report. Continue with normal saline and monitor CBC and BMP. Currently on Dilaudid and Toradol for pain management. We will continue to follow and further recommendations based on the clinical course. Discussed with his father in detail regarding medical condition.
[2022-12-19] MEDS: PIPERACILLIN-TAZOBACTAM 3.375 GM in SODIUM CHLORIDE 0.9% 100 ML IVPB SCH ×3 (04:00→20:38)
[2022-12-19] MEDS: KETOROLAC 15 MG/ML 1 ML VIAL IVP SCH ×4 (06:18→23:31)
[2022-12-19] MEDS: HYDROmorphone 0.5 MG/0.5 ML SYRINGE IVP PRN (06:56)
[2022-12-19] MEDS: HEPARIN SODIUM,PORCINE/PF 5,000 UNIT/0.5 ML SYRINGE SQ SCH ×2 (07:55→20:38)
[2022-12-19] MEDS: PANTOPRAZOLE 40 MG/10 ML VIAL IVP SCH (08:12)
[2022-12-19] MEDS: SIMETHICONE 40 MG/0.6 ML DROPS 2,000 MG/30 ML BOTTLE PO SCH ×4 (08:13→20:38)
[2022-12-19] MEDS: SODIUM CHLORIDE 0.9% 1,000 ML IV SCH ×3 (08:13→23:32)
[2022-12-19 09:42] LABS: Basophils # (A) 0.03 X 10*3/uL (0.00-0.10); Basophils % (A) 0.2 %; Eosinophils # (A) 0.05 X 10*3/uL (0.04-0.35); Eosinophils % (A) 0.3 %; HCT 40.1 % (39.6-50.0); HGB 13.2 g/dL (13.0-17.0); Immature Grans, Automated 0.5 %; Lymphocytes # (A) 1.43 X 10*3/uL (0.90-5.00); MCH 29.1 pg (27.0-32.0); MCHC 32.9 g/dL (32.0-37.0); MCV 88.3 fL (80.0-97.0); Mean Platelet Volume 10.1 fL (9.5-12.2); Monocytes # (A) 1.48 X 10*3/uL (0.20-1.00); Monocytes % (A) 10.3 %; NRBC Per 100 WBC 0 /100 WBCS (0.0-0.0); Neutrophils # (A) 11.27 X 10*3/uL (1.80-7.70); Neutrophils % (A) 78.7 %; Platelet Count 237 X 10*3/uL (140-440); RBC 4.54 X 10*6/uL (4.40-5.60); RDW 11.9 % (11.5-14.5); WBC 14.33 X 10*3/uL (4.50-10.00)
[2022-12-19 09:46] LABS: African American GFR (CKD) 103.4 (60.0-200.0); Albumin 3.1 g/dL (3.8-4.9); Albumin/Globulin Ratio 1.44 (1.60-3.17); BUN/Creat Ratio 12.39 Ratio (12.00-20.00); Blood Urea Nitrogen 14.5 mg/dL (9.0-27.0); Calcium 8.5 mg/dL (8.7-10.3); Carbon Dioxide 26.5 mmol/L (20.0-27.5); Globulin 2.2 g/dL (1.6-3.3); Non-African American GFR(CKD) 89.2 (60.0-200.0); Potassium 4.1 mmol/L (3.5-5.5); Total Bilirubin 1.1 mg/dL (0.30-1.20); Total Protein 5.3 g/dL (6.2-8.2)
[2022-12-19] MEDS ORDERED: HYDROcodone/APAP 5-325MG 1 EACH TAB PO PRN (11:21)
--- NOTE | 2022-12-19 11:47 | XR ---
EXAMINATION TYPE: XR chest 1V portable DATE OF EXAM: 12/19/2022 Comparison: 09/05/2020 Clinical History: 22-year-old male shortness of breath. Patient had surgery for ruptured appendix. Findings: The cardiomediastinal silhouette, aorta, and pulmonary vasculature are within normal limits. Lungs and pleural spaces are clear. Impression: No acute cardiopulmonary process.
[2022-12-19] MEDS ORDERED: ACETAMINOPHEN IV (For NPO) 1,000 MG in EMPTY BAG 1 BAG IVPB SCH (14:45)
--- NOTE | 2022-12-19 14:55 | P.PN ---
Progress Note - Text Progress Note Date: 12/19/22 Care team notified via telephone. Discussion with nurse reveals patient had fever last night. He had emesis last night. Medicine team also following. Infectious disease provider consulted due to complex intra-abdominal abscess. I discussed with the patient's father expected postoperative management including ileus which may occur. I personally reviewed his chest x-ray demonstrated no acute pneumonia or findings. Continuation of intravenous Tylenol and Toradol in the interim. IV fluids increased due to expected low oral intake. Expected high DONNY outputs due to moderate abdominal lavage from intra-abdominal abscess. Culture is pending. Final cultures to determine discharge antibiotics. Continue full inpatient hospitalization due to ruptured appendicitis, complex intra-abdominal abscess.
[2022-12-19] MEDS: ACETAMINOPHEN IV (For NPO) 1,000 MG in EMPTY BAG 1 BAG IVPB SCH ×2 (15:19→21:55)
[2022-12-19] MEDS: ONDANSETRON 4 MG/2 ML VIAL IVP PRN (15:19)
--- NOTE | 2022-12-19 21:54 | P.CONS ---
History of Present Illness - Reason for Consult Consult date: 12/19/22 Antibiotic management Requesting physician: Cathy Peck - Chief Complaint Abdominal pain 1 day - History of Present Illness patient is a 22-year male with no significant past medical history presenting to the hospital on 12/16/2022 with less than 1 day history of abdominal pain patient pain has been mostly right lower quadrant area the patient pain was sharp and almost 10 out of 10 in severity with no significant radiation associated nausea and vomiting but no diarrhea did have some chills with the symptoms the patient was evaluated on arrival to the ER patient was afebrile he did have a low-grade fever 100.1 F on 12/17/2022 and a low-grade fever 100.1 last night patient is afebrile this morning patient did have white count of 14.4 which did went up to 20.7 however is down to 14.3 today kidney function has been normal bilirubin was mildly elevated but is trending down patient did have a CT of abdominal pelvis with suspicious for appendicitis patient was taken to the OR on 12/17/2022 and the patient is s/p laparoscopic lysis of adhesion laparoscopic appendectomy for a gangrenous ruptured appendicitis and and drainage of the abscess cultures were obtained patient was started on Zosyn infectious disease was consulted for further management of antibiotic therapy Review of Systems Positive point has been mentioned in the HPI rest of the systems are negative Past Medical History Past Medical History: Asthma Additional Past Medical History / Comment(s): childhood asthma History of Any Multi-Drug Resistant Organisms: None Reported Past Surgical History: No Surgical Hx Reported Additional Past Surgical History / Comment(s): wisdom teeth removal Past Psychological History: No Psychological Hx Reported Smoking Status: Never smoker Past Alcohol Use History: None Reported Past Drug Use History: None Reported Medications and Allergies Home Medications Medication Instructions Recorded Confirmed Type Acetaminophen Tab [Tylenol] 1,000 mg PO Q6HR PRN #30 tablet 12/21/22 Rx Amoxic-Pot Clav 875-125Mg 1 tab PO Q12HR 10 Days #20 tab 12/21/22 Rx [Augmentin 875-125] Ciprofloxacin HCl [Cipro] 500 mg PO Q12HR 10 Days #20 tab 12/21/22 Rx Ibuprofen [Motrin] 600 mg PO Q8HR PRN #30 tab 12/21/22 Rx Allergies Allergy/AdvReac Type Severity Reaction Status Date / Time No Known Allergies Allergy Verified 12/16/22 11:06 Physical Exam Vitals: Vital Signs Temp Pulse Resp BP Pulse Ox 12/19/22 09:30 77 16 95 12/19/22 07:00 98.6 F 93 16 125/70 90 L 12/19/22 02:20 98.9 F 93 16 115/53 91 L 12/18/22 20:00 97 16 12/18/22 19:31 100.1 F H 96 16 187/76 96 12/18/22 14:24 99.7 F H 97 16 96/50 96 Intake and Output 12/18/22 12/19/22 12/19/22 22:59 06:59 14:59 Intake Total 250 250 Output Total 40 120 120 Balance 210 130 -120 Intake: Oral 250 250 Output: Drainage 40 120 120 Left Lower Abdomen 40 120 120 Other: Voiding Method Toilet GENERAL DESCRIPTION: Young male lying in bed, no distress. No tachypnea or acc essory muscle of respiration use. HEENT: Shows Pallor , no scleral icterus. Oral mucous membrane is dry. No pharyngeal erythema or thrush NECK: Trachea central, no thyromegaly. LUNGS: Unlabored breathing. Clear to auscultation anteriorly. No wheeze or crackle. HEART: S1, S2, regular rate and rhythm. No loud murmur ABDOMEN: Soft, mild tenderness , no guarding or rigidity EXTREMITIES: No edema of feet. SKIN: No rash, no masses palpable. NEUROLOGICAL: The patient is awake, alert, oriented x3, mood and affect normal. Results CBC & Chem 7: 12/21/22 06:15 12/21/22 06:15 Labs: Abnormal Lab Results - Last 24 Hours (Table) 12/18/22 12/18/22 12/19/22 Range/Units 06:55 06:55 05:28 WBC 16.89 H 14.33 H (4.50-10.00) X 10*3/uL Hct 38.4 L (39.6-50.0) % Immature Gran # 0.20 H 0.07 H (0.00-0.04) X 10*3/uL Neutrophils # 14.22 H 11.27 H (1.80-7.70) X 10*3/uL Monocytes # 1.39 H 1.48 H (0.20-1.00) X 10*3/uL Eosinophils # 0.03 L (0.04-0.35) X 10*3/uL Sodium 133 L (135-145) mmol/L Anion Gap 8.30 L (10.00-18.00) mmol/L Calcium 8.5 L (8.7-10.3) mg/dL Total Bilirubin 1.90 H (0.30-1.20) mg/dL Total Protein 5.3 L (6.2-8.2) g/dL Albumin 3.3 L (3.8-4.9) g/dL Albumin/Globulin Ratio 1.58 L (1.60-3.17) g/dL 12/19/22 Range/Units 05:28 WBC (4.50-10.00) X 10*3/uL Hct (39.6-50.0) % Immature Gran # (0.00-0.04) X 10*3/uL Neutrophils # (1.80-7.70) X 10*3/uL Monocytes # (0.20-1.00) X 10*3/uL Eosinophils # (0.04-0.35) X 10*3/uL Sodium (135-145) mmol/L Anion Gap 8.00 L (10.00-18.00) mmol/L Calcium 8.5 L (8.7-10.3) mg/dL Total Bilirubin (0.30-1.20) mg/dL Total Protein 5.3 L (6.2-8.2) g/dL Albumin 3.1 L (3.8-4.9) g/dL Albumin/Globulin Ratio 1.44 L (1.60-3.17) g/dL Microbiology - Last 24 Hours (Table) 12/17/22 16:04 Gram Stain - Preliminary Appendix Wound Culture - Preliminary Gram Neg Bacilli Assessment and Plan (1) Gangrenous appendicitis Status: Acute Code(s): K35.891 - OTHER ACUTE APPENDICITIS WITHOUT PERFORATION, WITH GANGRENE SNOMED Code(s): 6299928570 (2) Intra-abdominal abscess Status: Acute Code(s): K65.1 - PERITONEAL ABSCESS SNOMED Code(s): 39100910 Plan: 1patient presented to hospital with sepsis in this patient did have a fever elevated white count source is acute gangrenous appendicitis which was ruptured with periappendicular abscess in this patient with status post laparoscopic appendectomy and drainage of the abscess with abdominal cultures currently pending. 2patient did have low-grade fever and white count still elevated however clinically he seems to be doing well as far as pain control is concerned. 3we will continue patient on Zosyn while waiting for the culture to finalize with the discharge antibiotic on the basis of clinical spots and final culture this was explained to the patient and the father at the bedside. We will follow on clinical condition and cultures to further adjust medication if needed Thank you for this consultation we will follow the patient along with you, but this young clinically Time with Patient: Greater than 30
--- NOTE | 2022-12-20 01:20 | P.PN ---
Subjective Progress Note Date: 12/19/22 Patient is a 22-year-old male with a known history of childhood asthma currently not on any medications presents to ER with complaints of right lower quadrant abdominal pain started on Tuesday night night and came to ER on morning, 12/16/2022.. Patient was complaining of mid abdominal and also right lower quadrant abdominal pain. Crampy and dull aching pain. Patient was nauseous and no episodes of vomiting. He came to ER due to worsening abdominal pain. CT of the abdomen pelvis showed CT findings on current study are suspicious for mid to distal appendicitis due to obstructive appendicolith on the current study. Calcification possible appendicolith was visualized on prior exam however. Laboratory data showed WBC 14.4 hemoglobin 16.5 and platelets 236 and lymphocytes 11.9 INR 1.1 and sodium 139 potassium 4.8 chloride 102 bicarb is 28 BUN 16 creatinine 0.87 and total bilirubin of 1.4 liver enzymes are not elevated lipase level is 35. Patient was taken to the OR and is currently status post robotic assisted laparoscopic cholecystectomy and found to have ruptured appendicitis with periappendicular abscess drainage.. Currently patient is in the postop recovery area. 12/18/2022 Patient is resting in bed. Awake alert and oriented x3. No complaints of chest pain or shortness of breath. Abdominal pain is better. Patient is able to pass flatus. Tolerating oral diet. Continued on IV hydration and antibiotics with Zosyn. Patient has been afebrile. No nausea or vomiting or diarrhea. No cough or sputum production. Laboratory showed WBC count trending down to 16.8 hemoglobin 13.0 and platelets 190 sodium 133 potassium 4.3 chloride 100 bicarb is 24.7 BUN 15.5 and a creat inine 1.1. Total bilirubin level is slightly up to 1.9 and calcium 8.5. 12/19/2022 Patient is resting in the bed. Awake alert oriented x3. Patient did have multiple episodes of loose bowel movements today. No complaints of worsening abdominal pain. No fever no chills. No nausea vomiting or diarrhea. No cough or sputum production. Fluid cultures showing gram-negative bacilli. Patient is being continued on Zosyn. ID is on board. Laboratory data showed WBC trending down to 14.3 hemoglobin 13.2 and platelets 237 Sodium 136 potassium 4.1 chloride 101 bicarb is 26.5 BUN 14.5 and creatinine 1.2 and lactic acid came down to 0.7, bilirubin trending down to 1.1 and albumin 3.1. Discussed with the family at bedside in detail. Current medications reviewed. Objective - Vital Signs Vital signs: Vital Signs Temp 98.6 F 12/19/22 07:00 Pulse 77 12/19/22 09:30 Resp 16 12/19/22 09:30 BP 125/70 12/19/22 07:00 Pulse Ox 95 12/19/22 09:30 FiO2 Intake & Output 12/18/22 12/19/22 12/19/22 18:59 06:59 18:59 Intake Total 500 Output Total 160 230 Balance 340 -230 Intake: Oral 500 Output: Drainage 160 230 Left Lower Abdomen 160 230 Other: Voiding Method Toilet # Voids 3 - Exam PHYSICAL EXAMINATION: Patient is lying in the bed comfortably, no acute distress, awake alert and oriented.. HEENT: Normocephalic. Neck is supple. Pupils reactive. Nostrils clear. Oral cavity is moist. Neck reveals no JVD, carotid bruits, or thyromegaly. CHEST EXAMINATION: Trachea is central. Symmetrical expansion. Lung loja clear to auscultation and percussion. CARDIAC: Normal S1, S2 with no gallops. No murmurs ABDOMEN: Soft. Bowel sounds present. Mild tenderness. No guarding or rigidity. Incision sites are intact.. No organomegaly. No abdominal bruits. Extremities: reveal no edema. No clubbing or cyanosis Neurologically awake, alert, oriented x3 with well-coordinated movements. No focal deficits noted Skin: No rash or skin lesions. Psychiatric: Coperative. Nonsuicidal, Musculoskeletal: No joint swelling or deformity. Normal range of motion. - Labs CBC & Chem 7: 12/19/22 05:28 12/19/22 05:28 Labs: Abnormal Lab Results - Last 24 Hours (Table) 12/19/22 12/19/22 Range/Units 05:28 05:28 WBC 14.33 H (4.50-10.00) X 10*3/uL Immature Gran # 0.07 H (0.00-0.04) X 10*3/uL Neutrophils # 11.27 H (1.80-7.70) X 10*3/uL Monocytes # 1.48 H (0.20-1.00) X 10*3/uL Anion Gap 8.00 L (10.00-18.00) mmol/L Calcium 8.5 L (8.7-10.3) mg/dL Total Protein 5.3 L (6.2-8.2) g/dL Albumin 3.1 L (3.8-4.9) g/dL Albumin/Globulin Ratio 1.44 L (1.60-3.17) g/dL Microbiology - Last 24 Hours (Table) 12/17/22 16:04 Gram Stain - Preliminary Appendix Wound Culture - Preliminary Gram Neg Bacilli Assessment and Plan Assessment: Acute gangrenous ruptured appendicitis with appendiceal abscess and peritoneal adhesions. Laparoscopic appendectomy and drainage of periappendicular abscess. Postoperative day 2 Leukocytosis Childhood asthma. Stable at this time. DVT prophylaxis with heparin subcu GI prophylaxis on Protonix IV Plan: Patient will be continued IV hydration. Continue with antibiotics in the form of Zosyn. Follow-up surgical abscess fluid culture report. Primary cultures growing gram-negative bacilli. Continue with normal saline and monitor CBC and BMP. Currently on Dilaudid and Toradol for pain management. We will continue to follow and further recommendations based on the clinical cou rse. Discussed with his father in detail regarding medical condition. Time with Patient: Greater than 30
[2022-12-20] MEDS: ACETAMINOPHEN IV (For NPO) 1,000 MG in EMPTY BAG 1 BAG IVPB SCH ×4 (02:50→22:43)
[2022-12-20] MEDS: PIPERACILLIN-TAZOBACTAM 3.375 GM in SODIUM CHLORIDE 0.9% 100 ML IVPB SCH ×3 (03:24→21:27)
[2022-12-20] MEDS: KETOROLAC 15 MG/ML 1 ML VIAL IVP SCH ×3 (05:31→18:22)
[2022-12-20] MEDS: SODIUM CHLORIDE 0.9% 1,000 ML IV SCH ×3 (09:26→18:21)
[2022-12-20] MEDS: HEPARIN SODIUM,PORCINE/PF 5,000 UNIT/0.5 ML SYRINGE SQ SCH ×2 (09:26→21:28)
[2022-12-20] MEDS: PANTOPRAZOLE 40 MG/10 ML VIAL IVP SCH (09:26)
[2022-12-20] MEDS: SIMETHICONE 40 MG/0.6 ML DROPS 2,000 MG/30 ML BOTTLE PO SCH ×4 (09:27→21:29)
[2022-12-20 09:50] LABS: Basophils # (A) 0.04 X 10*3/uL (0.00-0.10); Basophils % (A) 0.4 %; Eosinophils # (A) 0.42 X 10*3/uL (0.04-0.35); Eosinophils % (A) 3.8 %; HCT 38.2 % (39.6-50.0); HGB 12.9 g/dL (13.0-17.0); Immature Grans, Automated 0.5 %; Lymphocytes # (A) 1.37 X 10*3/uL (0.90-5.00); Lymphocytes % (A) 12.4 %; MCH 28.9 pg (27.0-32.0); MCHC 33.8 g/dL (32.0-37.0); MCV 85.7 fL (80.0-97.0); Mean Platelet Volume 9.3 fL (9.5-12.2); Monocytes # (A) 1.09 X 10*3/uL (0.20-1.00); Monocytes % (A) 9.9 %; NRBC Per 100 WBC 0 /100 WBCS (0.0-0.0); Neutrophils # (A) 8.08 X 10*3/uL (1.80-7.70); Platelet Count 255 X 10*3/uL (140-440); RBC 4.46 X 10*6/uL (4.40-5.60); RDW 11.9 % (11.5-14.5); WBC 11.05 X 10*3/uL (4.50-10.00)
[2022-12-20 10:09] LABS: African American GFR (CKD) 120.6 (60.0-200.0); Albumin/Globulin Ratio 1.29 (1.60-3.17); Anion Gap 9.5 mmol/L (10.00-18.00); BUN/Creat Ratio 10.58 Ratio (12.00-20.00); Blood Urea Nitrogen 10.9 mg/dL (9.0-27.0); Calcium 8.6 mg/dL (8.7-10.3); Carbon Dioxide 24.4 mmol/L (20.0-27.5); Globulin 2.3 g/dL (1.6-3.3); Non-African American GFR(CKD) 104.1 (60.0-200.0); Potassium 4.2 mmol/L (3.5-5.5); Total Bilirubin 0.7 mg/dL (0.30-1.20); Total Protein 5.3 g/dL (6.2-8.2)
--- NOTE | 2022-12-20 12:52 | P.PN ---
Subjective Progress Note Date: 12/20/22 CHIEF COMPLAINT: Gangrenous ruptured appendicitis HISTORY OF PRESENT ILLNESS: Patient is postop day #3 status post robotic- assisted daVinci laparoscopic appendectomy with drainage of periappendiceal abscess, lysis of adhesions and peritoneal lavage. Patient reports his pain is controlled. He denies any nausea or vomiting. He is tolerating diet. He is having bowel movements and flatus. He is afebrile. White count is trending downward from 14.3-11.05 Hgb is 12.9 platelet 255 sodium is 140 creatinine 1.0 AST 61 ALT 57 total bilirubin 0.70 culture grew E. coli and group D enterococcus. Chest x-ray no acute cardiopulmonary process PHYSICAL EXAM: VITAL SIGNS: Reviewed GENERAL: Well-developed in no acute distress. HEENT: No sclera icterus. Extraocular movements grossly intact. Moist buccal mucosa. Head is atraumatic, normocephalic. Hears conversational speech. No nasal drainage. NECK: Supple without lymphadenopathy. CHEST: Non-labored respirations and equal bilateral excursions. CARDIOVASCULAR: Palpable 2+ radial pulses. ABDOMEN: Soft. Nondistended. Nontender. MUSCULOSKELETAL: No clubbing or cyanosis. NEUROLOGIC: No focal or lateralizing signs. Cranial nerves II through XII grossly intact. PSYCH: Appropriate affect. Alert and oriented to person, place and time. SKIN: Well perfused. Good skin turgor. ASSESSMENT: 1. Gangrenous ruptured appendicitis with appendiceal abscess with peritoneal adhesions 2. Sepsis 3. Ascites, turbid 4. Right inguinal hernia 5. Mildly elevated LFTs PLAN: -Continue antibiotics -Continue to monitor WBC -Repeat LFTs in a.m. -Encourage patient to ambulate -Continue regular diet -Continue pain management -GI prophylaxis Protonix and DVT prophylaxis subcu heparin Physician Residential Interior Designer note has been reviewed by physician. Signing provider agrees with the documented findings, assessment, and plan of care. CHIEF COMPLAINT: Ruptured appendicitis HISTORY OF PRESENT ILLNESS: The patient is a 22-year-old male who underwent a ppendectomy for diffuse peritonitis with ruptured appendicitis. Reports no further nausea or vomiting. Pain well controlled with scheduled IV Tylenol and Toradol. His mother is at bedside. No fevers. ROS: No reports of nausea and vomiting. No fevers or chills. No new chest pain. No productive sputum. Oxygen saturation less than 95%, and treatment PHYSICAL EXAM: VITAL SIGNS: Reviewed CONSTITUTIONAL: Well developed and in no acute distress. EYES: Conjuctivae without sclera icterus. Extraocular movements grossly intact. HEAD, EARS, NOSE, THROAT: Moist buccal mucosa. Head is atraumatic, normocephalic. Hears conversational speech. No nasal drainage. RESPIRATORY: Non-labored respirations and equal bilateral excursions. CARDIOVASCULAR: Palpable 2+ radial pulses. ABDOMEN: DONNY drains serosanguineous. Decrease purulence. No peritonitis. Incisions clean dry and intact. MUSCULOSKELETAL: No gross deformity of the lower extremities noted. No clubbing. No cyanosis. SKIN: Good skin turgor. Well perfused. NEUROLOGIC: Cranial nerves II through XII grossly intact. No focal or lateralizing signs. PSYCH: Appropriate affect. Alert and oriented to person, place and time. CLINICAL LABS: Reviewed. WBC trending down from over 20,000 to over 11,000. LFTs trending upward, new MICROBIOLOGY: Multiple organisms growing at least 3-4 strains ASSESSMENT: 1. Ruptured appendicitis with peritonitis status post appendectomy 2. Sepsis due to ruptured appendicitis 3. Elevated LFTs 4. Transient hypoxia PLAN: 1. Antibiotic management per infectious disease 2. Continue inpatient hospitalization for antibiotics 3. Discharge for DONNY drain discussed with patient and mother at bedside 4. Discharge pending infectious disease recommendations Objective - Vital Signs Vital signs: Vital Signs Temp 98.1 F 12/20/22 07:00 Pulse 85 12/20/22 07:00 Resp 18 12/20/22 07:00 BP 131/72 12/20/22 07:00 Pulse Ox 94 L 12/20/22 07:00 FiO2 Intake & Output 12/19/22 12/20/22 12/20/22 18:59 06:59 18:59 Intake Total 1250 118 Output Total 350 60 150 Balance -350 1190 -32 Intake: Intake, IV Titration 1000 Amount Sodium Chloride 0.9% 1, 1000 000 ml @ 130 mls/hr IV . Q7H42M [facility] Rx#:[id number] Oral 250 118 Output: Drainage 350 60 150 Left Lower Abdomen 350 60 150 Other: Voiding Method Toilet # Voids 4 - Labs CBC & Chem 7: 12/20/22 05:07 12/20/22 05:07 Labs: Abnormal Lab Results - Last 24 Hours (Table) 12/20/22 12/20/22 Range/Units 05:07 05:07 WBC 11.05 H (4.50-10.00) X 10*3/uL Hgb 12.9 L (13.0-17.0) g/dL Hct 38.2 L (39.6-50.0) % MPV 9.3 L (9.5-12.2) fL Immature Gran # 0.05 H (0.00-0.04) X 10*3/uL Neutrophils # 8.08 H (1.80-7.70) X 10*3/uL Monocytes # 1.09 H (0.20-1.00) X 10*3/uL Eosinophils # 0.42 H (0.04-0.35) X 10*3/uL Anion Gap 9.50 L (10.00-18.00) mmol/L BUN/Creatinine Ratio 10.58 L (12.00-20.00) Ratio Calcium 8.6 L (8.7-10.3) mg/dL AST 61 H (14-35) U/L ALT 57 H (10-49) U/L Total Protein 5.3 L (6.2-8.2) g/dL Albumin 3.0 L (3.8-4.9) g/dL Albumin/Globulin Ratio 1.29 L (1.60-3.17) g/dL Microbiology - Last 24 Hours (Table) 12/17/22 16:04 Gram Stain - Preliminary Appendix Wound Culture - Preliminary Escherichia coli Gram Neg Bacilli Group D Enterococcus
--- NOTE | 2022-12-20 22:48 | P.PN ---
Subjective Progress Note Date: 12/20/22 Principal diagnosis: Perforated appendicitis and intra-abdominal abscess patient is a 22-year male with no significant past medical history presenting to the hospital on 12/16/2022 with less than 1 day history of abdominal pain patient pain has been mostly right lower quadrant area , patient has been diagnosed with a gangrenous perforated appendicitis and intra-abdominal abscess status post surgical drainage. On today's evaluation that is 12/20/2022, the patient denies having any fever or chills, the patient abdominal pain has decreased in intensity nausea has impr zunilda no vomiting denies any chest pain shortness of breath or cough Objective - Vital Signs Vital signs: Vital Signs Temp 98.1 F 12/20/22 07:00 Pulse 85 12/20/22 07:00 Resp 18 12/20/22 07:00 BP 131/72 12/20/22 07:00 Pulse Ox 94 L 12/20/22 07:00 FiO2 Intake & Output 12/19/22 12/20/22 12/20/22 18:59 06:59 18:59 Intake Total 1250 118 Output Total 350 60 150 Balance -350 1190 -32 Intake: Intake, IV Titration 1000 Amount Sodium Chloride 0.9% 1, 1000 000 ml @ 130 mls/hr IV . Q7H42M [facility] Rx#:[id number] Oral 250 118 Output: Drainage 350 60 150 Left Lower Abdomen 350 60 150 Other: Voiding Method Toilet # Voids 4 - Exam GENERAL DESCRIPTION: Young male lying in bed in no distress RESPIRATORY SYSTEM: Unlabored breathing , decreased breath sounds at bases HEART: S1 S2 regular rate and rhythm , ABDOMEN: Soft , no tenderness EXTREMITIES: No edema feet - Labs CBC & Chem 7: 12/20/22 05:07 12/20/22 05:07 Labs: Abnormal Lab Results - Last 24 Hours (Table) 12/20/22 12/20/22 Range/Units 05:07 05:07 WBC 11.05 H (4.50-10.00) X 10*3/uL Hgb 12.9 L (13.0-17.0) g/dL Hct 38.2 L (39.6-50.0) % MPV 9.3 L (9.5-12.2) fL Immature Gran # 0.05 H (0.00-0.04) X 10*3/uL Neutrophils # 8.08 H (1.80-7.70) X 10*3/uL Monocytes # 1.09 H (0.20-1.00) X 10*3/uL Eosinophils # 0.42 H (0.04-0.35) X 10*3/uL Anion Gap 9.50 L (10.00-18.00) mmol/L BUN/Creatinine Ratio 10.58 L (12.00-20.00) Ratio Calcium 8.6 L (8.7-10.3) mg/dL AST 61 H (14-35) U/L ALT 57 H (10-49) U/L Total Protein 5.3 L (6.2-8.2) g/dL Albumin 3.0 L (3.8-4.9) g/dL Albumin/Globulin Ratio 1.29 L (1.60-3.17) g/dL Microbiology - Last 24 Hours (Table) 12/17/22 16:04 Gram Stain - Preliminary Appendix Wound Culture - Preliminary Escherichia coli Gram Neg Bacilli Group D Enterococcus Assessment and Plan (1) Intra-abdominal abscess Current Visit: Yes Status: Acute Code(s): K65.1 - PERITONEAL ABSCESS SNOMED Code(s): 82710917 (2) Gangrenous appendicitis Current Visit: Yes Status: Acute Code(s): K35.891 - OTHER ACUTE APPENDICITIS WITHOUT PERFORATION, WITH GANGRENE SNOMED Code(s): 3306631311 Plan: 1patient presented to hospital with sepsis in this patient did have a fever elevated white count source is acute gangrenous appendicitis which was ruptured with periappendicular abscess in this patient with status post laparoscopic appendectomy and drainage of the abscess with abdominal cultures has not been finalized yet. 2patient to continue with Zosyn while waiting for the culture to finalize with the discharge antibiotic on the basis of clinical response and final culture this was explained to the patient and the mother at the bedside. Time with Patient: Less than 30
--- NOTE | 2022-12-20 23:38 | PN ---
PROGRESS NOTE DATE OF SERVICE: 12/20/2022 SUBJECTIVE: This is a 22-year-old gentleman who was admitted with acute gangrenous ruptured appendix with appendix abscess, is being closely monitored, patient has less drains. No chest pain. No palpitations. No fever. OBJECTIVE: VITAL SIGNS: Pulse 85, blood pressure 130/70, respirations 18. CHEST: Clear to auscultation. CARDIOVASCULAR: Normal. ABDOMEN: Soft, status post surgery. LABORATORY DATA: WBC 11.5, improving. LFTs are improving also. ASSESSMENT: 1. Acute gangrenous ruptured appendix with appendiceal abscess and peritonitis, status post laparoscopic appendectomy and drainage of the abscess. 2. Leukocytosis. 3. History of childhood asthma. RECOMMENDATIONS: Recommend to continue current medications otherwise at this time, I would recommend to continue the antibiotics. Repeat labs. Chest x-ray is normal. Continue incentive spirometry. DVT prophylaxis. Further recommendations to follow. MMMIRANDAL / IJN: [id number] / MTDD
[2022-12-21] MEDS: KETOROLAC 15 MG/ML 1 ML VIAL IVP SCH ×3 (01:08→12:04)
[2022-12-21] MEDS: PIPERACILLIN-TAZOBACTAM 3.375 GM in SODIUM CHLORIDE 0.9% 100 ML IVPB SCH ×2 (05:08→12:04)
[2022-12-21] MEDS: ACETAMINOPHEN IV (For NPO) 1,000 MG in EMPTY BAG 1 BAG IVPB SCH ×2 (05:09→09:42)
[2022-12-21 06:39] VITALS: RESP 16
[2022-12-21] MEDS: SIMETHICONE 40 MG/0.6 ML DROPS 2,000 MG/30 ML BOTTLE PO SCH ×2 (08:54→12:02)
[2022-12-21] MEDS: HEPARIN SODIUM,PORCINE/PF 5,000 UNIT/0.5 ML SYRINGE SQ SCH (08:56)
[2022-12-21] MEDS: PANTOPRAZOLE 40 MG/10 ML VIAL IVP SCH (09:41)
[2022-12-21 10:50] LABS: Basophils % (A) 0.4 %; Eosinophils # (A) 0.46 X 10*3/uL (0.04-0.35); Eosinophils % (A) 4.8 %; HCT 38.5 % (39.6-50.0); HGB 12.8 g/dL (13.0-17.0); Lymphocytes # (A) 1.64 X 10*3/uL (0.90-5.00); MCH 28.4 pg (27.0-32.0); MCHC 33.2 g/dL (32.0-37.0); MCV 85.6 fL (80.0-97.0); Mean Platelet Volume 9.2 fL (9.5-12.2); Monocytes # (A) 0.94 X 10*3/uL (0.20-1.00); Monocytes % (A) 9.8 %; Neutrophils # (A) 6.51 X 10*3/uL (1.80-7.70); Neutrophils % (A) 67.5 %; Platelet Count 284 X 10*3/uL (140-440); RDW 11.9 % (11.5-14.5); WBC 9.64 X 10*3/uL (4.50-10.00)
[2022-12-21 10:51] LABS: Basophils # (A) 0.04 X 10*3/uL (0.00-0.10); Immature Grans, Automated 0.5 %; NRBC Per 100 WBC 0 /100 WBCS (0.0-0.0)
[2022-12-21 11:53] LABS: African American GFR (CKD) 111.4 (60.0-200.0); Albumin 3.1 g/dL (3.8-4.9); Albumin/Globulin Ratio 1.35 (1.60-3.17); Anion Gap 9.5 mmol/L (10.00-18.00); BUN/Creat Ratio 7.27 Ratio (12.00-20.00); Calcium 8.7 mg/dL (8.7-10.3); Carbon Dioxide 24.5 mmol/L (20.0-27.5); Globulin 2.3 g/dL (1.6-3.3); Non-African American GFR(CKD) 96.1 (60.0-200.0); Total Bilirubin 0.5 mg/dL (0.30-1.20); Total Protein 5.4 g/dL (6.2-8.2)
--- NOTE | 2022-12-21 13:22 | PN ---
PROGRESS NOTE DATE OF SERVICE: 12/21/2022 SUBJECTIVE: This is a 22-year-old gentleman, who was admitted with acute gangrenous appendix and appendiceal abscess. He is improving significantly. No chest pain. No palpitations. No fever. White count is improving. OBJECTIVE: VITAL SIGNS: Pulse is 70, blood pressure 150/73, respirations 18. CHEST: Clear to auscultation. CARDIOVASCULAR: S1, S2 normal. ABDOMEN: Soft, status post surgery. LABORATORY DATA: Reviewed. White count is normal. ASSESSMENT: 1. Acute gangrenous ruptured appendix with appendiceal abscess and peritonitis, status post laparoscopic appendectomy and drainage of the abscess. 2. Leukocytosis. 3. History of childhood asthma. RECOMMENDATIONS: Recommend to continue current medications. Continue symptomatic treatment. Otherwise, at this time, I would recommend continue the antibiotics. Closely follow. The patient had polymicrobial amanda growing from the wound culture. MMODL / IJN: [id number] /
[2022-12-21 14:13] VITALS: BP 145/88; PULSE 70; TEMP 98.1
--- NOTE | 2022-12-21 15:12 | P.DS ---
Providers Date of admission: 12/17/22 16:46 Expected date of discharge: 12/21/22 Attending physician: Cathy Peck Consults: 12/17/22 16:44 Consult Physician Urgent Consulting Provider: Monalisa Ferrera Consult Reason/Comments: Medical management Do you want consulting provider notified?: Already Contacted 12/18/22 10:53 Consult Physician Routine Consulting Provider: Srinath Herrmann Consult Reason/Comments: Antibiotic management Do you want consulting provider notified?: Yes Primary care physician: Stated None Hospital Course: Discharge diagnosis 1. Gangrenous ruptured appendicitis with appendiceal abscess with peritoneal adhesions 2. Sepsis 3. Ascites, turbid 4. Right inguinal hernia 5. Mildly elevated LFTs Hospital course The patient is a 22-year-old male who presents with acute appendicitis including fevers consistent with sepsis. Patient is status post Robotic-assisted daVinci Xi laparoscopic lysis of adhesions and Robotic-assisted daVinci Xi laparoscopic appendectomy with drainage of periappendiceal abscess. Patient's pain is controlled. He is tolerating diet. He is having bowel movements. He has been up and ambulating. He is afebrile. His white count has normalized. Incision sites are clean dry and intact. Infectious diseases recommending Cipro and Flagyl at discharge. Patient is stable for discharge. Physician Office Inspector note has been reviewed by physician. Signing provider agrees with the documented findings, assessment, and plan of care. Patient Condition at Discharge: Stable Plan - Discharge Summary Discharge Rx Participant: No New Discharge Prescriptions: New Ciprofloxacin HCl [Cipro] 500 mg PO Q12HR 10 Days #20 tab Acetaminophen Tab [Tylenol] 1,000 mg PO Q6HR PRN #30 tablet PRN Reason: Pain Amoxic-Pot Clav 875-125Mg [Augmentin 875-125] 1 tab PO Q12HR 10 Days #20 tab Ibuprofen [Motrin] 600 mg PO Q8HR PRN #30 tab PRN Reason: Pain Discharge Medication List Acetaminophen Tab [Tylenol] 1,000 mg PO Q6HR PRN #30 tablet 12/21/22 [Rx] Amoxic-Pot Clav 875-125Mg [Augmentin 875-125] 1 tab PO Q12HR 10 Days #20 tab 12/21/22 [Rx] Ciprofloxacin HCl [Cipro] 500 mg PO Q12HR 10 Days #20 tab 12/21/22 [Rx] Ibuprofen [Motrin] 600 mg PO Q8HR PRN #30 tab 12/21/22 [Rx] Follow up Appointment(s)/Referral(s): [facility], [NON-STAFF] - 1 Week None,Stated [Primary Care Provider] - 1-2 days Srinath Herrmann MD [STAFF PHYSICIAN] - 1 Week Cathy Peck MD [STAFF PHYSICIAN] - 12/27/22 Activity/Diet/Wound Care/Special Instructions: No lifting over 4 pounds in 4 weeks You May shower. No bath tub soaks for two weeks Use Tylenol and ibuprofen scheduled for the next 24-48 hours for best pain relief. Use ice along incisions for the today to prevent swelling. Follow-up with Dr. Peck on 12/27/2022 via telephone Keep a log of DONNY drain output and bring with you to your follow-up appointment Milk/strip drains 2-3 times a day Discharge/Stand Alone Forms: Area PCPs Discharge Disposition: HOME SELF-CARE
--- NOTE | 2022-12-22 14:22 | P.PN ---
Subjective Progress Note Date: 12/21/22 Principal diagnosis: Perforated appendicitis and intra-abdominal abscess patient is a 22-year male with no significant past medical history presenting to the hospital on 12/16/2022 with less than 1 day history of abdominal pain patient pain has been mostly right lower quadrant area , patient has been diagnosed with a gangrenous perforated appendicitis and intra-abdominal abscess status post surgical drainage. On today's evaluation that is 12/21/2022, the patient remains to be afebrile, the patient abdominal pain has significantly decreased in intensity, the patient nausea has improved no vomiting, the patient denies any chest pain shortness of breath or cough, the patient is feeling better and wants to go home Objective - Vital Signs Vital signs: Vital Signs Temp 98.6 F 12/21/22 06:37 Pulse 85 12/21/22 06:37 Resp 16 12/21/22 06:37 BP 146/83 12/21/22 06:37 Pulse Ox 96 12/21/22 06:37 FiO2 Intake & Output 12/20/22 12/21/22 12/21/22 18:59 06:59 18:59 Intake Total 118 118 Output Total 150 50 40 Balance -32 -50 78 Intake: Oral 118 118 Output: Drainage 150 50 40 Left Lower Abdomen 150 50 40 Other: # Voids 1 3 - Exam GENERAL DESCRIPTION: Young male lying in bed in no distress RESPIRATORY SYSTEM: Unlabored breathing , decreased breath sounds at bases HEART: S1 S2 regular rate and rhythm , ABDOMEN: Soft , no tenderness EXTREMITIES: No edema feet - Labs CBC & Chem 7: 12/21/22 06:15 12/21/22 06:15 Labs: Microbiology - Last 24 Hours (Table) 12/17/22 16:04 Gram Stain - Final Appendix Wound Culture - Final Escherichia coli Pseudomonas aeruginosa Enterococcus faecalis Beta Hemolytic Streptococcus F Assessment and Plan (1) Intra-abdominal abscess Status: Acute Code(s): K65.1 - PERITONEAL ABSCESS SNOMED Code(s): 42878530 (2) Gangrenous appendicitis Status: Acute Code(s): K35.891 - OTHER ACUTE APPENDICITIS WITHOUT PERFORATION, WITH GANGRENE SNOMED Code(s): 0587029176 Plan: 1patient presented to hospital with sepsis in this patient did have a fever elevated white count source is acute gangrenous appendicitis which was ruptured with periappendicular abscess in this patient with status post laparoscopic appendectomy and drainage of the abscess with abdominal cultures currently growing Pseudomonas E. coli enterococcus 2patient seemed to have shown clinical improvement the patient white count has normalized we will advise oral Cipro and Augmentin on the basis of multiple pathogen he has grown in the culture, prescription was sent to the pharmacy and close outpatient follow-up Time with Patient: Less than 30
== END 2022-12-21 17:05 | disposition home health service (06) | DRG 853 ==
LOC: EC 08:16 → 6NMEDSUR 10:44 → OBSVTOIN 12-17 16:46 → 6NMEDSUR 12-18 03:14
PROVIDERS: ADMIT Surgery Plastic and Reconstructive Surgery; ATTEND Surgery Plastic and Reconstructive Surgery
PROC: 0DNW4ZZ Release Peritoneum, Percutaneous Endoscopic Approach (ICD-10-PCS; principal; 2022-12-17 09:20)
PROC: 0DTJ4ZZ Resection of Appendix, Percutaneous Endoscopic Approach (ICD-10-PCS; principal; 2022-12-17 09:20)
PROC: 8E0W4CZ Robotic Assisted Procedure of Trunk Region, Percutaneous Endoscopic Approach (ICD-10-PCS; principal; 2022-12-17 09:20)
DX: A41.51 Sepsis due to Escherichia coli [E. coli] (principal); K35.33 Acute appendicitis with perforation, localized peritonitis, and gangrene, with abscess; R18.8 Other ascites; A41.81 Sepsis due to Enterococcus; J45.909 Unspecified asthma, uncomplicated; R74.01 Elevation of levels of liver transaminase levels; K40.90 Unilateral inguinal hernia, without obstruction or gangrene, not specified as recurrent; R09.02 Hypoxemia; K66.0 Peritoneal adhesions (postprocedural) (postinfection); K38.1 Appendicular concretions
CPT/HCPCS: 36415; 71045; 74177; 80053; 83605; 83690; 85025; 85610; 85730; 87070; 87075; 87077; 87186; 87205; 88304; 96365; 96375; 99285